=== PATIENT | female | born 1945 | race Caucasian/White ===

== ENCOUNTER 2019-05-27 21:41 | Observation (INO) ==
[2019-05-27] MEDS ORDERED: Isovue-370 500 ML BOTTLE IVP ONE (21:56)
[2019-05-27 22:31] LABS: Hematocrit 41.8 % (35.3-44.9); Hemoglobin 13.7 g/dL (11.5-15.4); Mean Corpuscular HGB Conc 32.8 g/dL (31.6-35.5); Mean Corpuscular Hemoglobin 29.3 pg (28.0-33.3); Mean Corpuscular Volume 89.3 fL (83.0-100.0); Mean Platelet Volume 9.9 fL (9.4-12.4); Platelet Count 292 K/mcL (140-400); Red Blood Count 4.68 M/mcL (3.82-4.97); Red Cell Distribution Width 12.7 % (11.5-14.5); White Blood Count 7.8 K/mcL (4.3-11.1)
[2019-05-27 22:38] LABS: Prothrombin Time 10.9 Seconds (9.4-12.1)
[2019-05-27 22:41] LABS: Activated Partial Thrombo Time 28.8 Seconds (26.0-36.0)
[2019-05-27 22:49] LABS: BUN/Creatinine Ratio 16 (6-26); Blood Urea Nitrogen 14 mg/dL (8-23); Calcium 8.4 mg/dL (8.6-10.3); Carbon Dioxide 24 mEq/L (23-29); Chloride 103 mEq/L (98-107); Glucose 175 mg/dL (70-105); Osmolality,Calculated 279 (280-300); Potassium 3.6 mEq/L (3.5-5.1); Sodium 132 mEq/L (136-145); eGFR For African Americans > 60 (> 60); eGFR For Non-African Americans > 60 (> 60)
[2019-05-27 22:50] LABS: Troponin I < 0.03 ng/mL (< 0.04)
[2019-05-27] MEDS ORDERED: Aspirin 325 MG TABLET PO ONE (23:09)
[2019-05-28 00:41] LABS: Bilirubin,Urine Negative (Negative); Blood,Urine Negative (Negative); Clarity,Urine Clear (Clear); Color,Urine Yellow (Yellow); Glucose,Urine (UA) Normal (Normal); Ketones,Urine Negative (Negative); Leukocyte Esterase,Urine Small (Negative); Nitrite,Urine Negative (Negative); PH,Urine 6.5 pH Units (5.0-8.0); Protein,Urine 30 mg/dL (Neg-Trace); Specific Gravity,Urine > 1.030 (1.010-1.025); Urobilinogen,Urine Normal (Normal)
[2019-05-28 00:44] LABS: Bacteria,Urine None Seen per hpf (None-Few); Hyaline Casts,Urine None Seen per lpf (None-Few); Squamous Epithelial Cell,Urine Many per lpf (None-Few)
[2019-05-28 01:06] LABS: WBC,Urine 0-3 per hpf (0-3)
[2019-05-28] MEDS ORDERED: Ondansetron 4 MG/2 ML VIAL IVP PRN (01:35)
[2019-05-28] MEDS ORDERED: Naloxone 0.4 MG/ML INJ IVP PRN (01:35)
[2019-05-28] MEDS ORDERED: Acetaminophen 325 MG TABLET PO PRN (01:35)
[2019-05-28] MEDS: *HR* Heparin 5,000 UNIT/ML VIAL SQ SCH ×4 (02:07→23:11)
[2019-05-28 04:56] LABS: Basophils % 0.5 %; Eosinophils # 0.2 K/mcL (0.0-0.6); Eosinophils % 2.5 %; Hematocrit 40.8 % (35.3-44.9); Hemoglobin 13.1 g/dL (11.5-15.4); Immature Granulocytes % 0.2 % (0-4); Lymphocytes # 2.6 K/mcL (0.6-4.6); Lymphocytes % 32.6 %; Mean Corpuscular HGB Conc 32.1 g/dL (31.6-35.5); Mean Corpuscular Hemoglobin 28.5 pg (28.0-33.3); Mean Corpuscular Volume 88.7 fL (83.0-100.0); Mean Platelet Volume 9.8 fL (9.4-12.4); Monocytes # 0.6 K/mcL (0.0-1.3); Monocytes % 7.5 %; Neutrophils # 4.6 K/mcL (1.6-8.9); Platelet Count 289 K/mcL (140-400); Red Cell Distribution Width 12.6 % (11.5-14.5); Segmented Neutrophils % 56.7 %
[2019-05-28 05:03] LABS: Alanine Aminotransferase 11 Units/L (7-52); Albumin 3.3 g/dL (3.5-5.7); Albumin/Globulin Ratio 1.3 (1.1-2.2); Alkaline Phosphatase 89 Units/L (34-104); Aspartate Amino Transferase 12 Units/L (13-39); BUN/Creatinine Ratio 16 (6-26); Bilirubin,Total 0.5 mg/dL (0.3-1.0); Blood Urea Nitrogen 12 mg/dL (8-23); Calcium 8.7 mg/dL (8.6-10.3); Carbon Dioxide 25 mEq/L (23-29); Chloride 105 mEq/L (98-107); Chol/HDL Ratio 4.3 (0-4.9); Cholesterol 211 mg/dL (< 200); Globulin 2.5 g/dL (2.4-3.5); Glucose 93 mg/dL (70-105); HDL Cholesterol 49 mg/dL (40-59); LDL Cholesterol,Calculated 134 mg/dL (0-99); Magnesium 1.7 mg/dL (1.6-2.6); Osmolality,Calculated 283 (280-300); Phosphorous 2.7 mg/dL (2.7-4.5); Potassium 3.3 mEq/L (3.5-5.1); Sodium 137 mEq/L (136-145); Total Protein 5.8 g/dL (6.4-8.9); Triglycerides 139 mg/dL (< 150); eGFR For African Americans > 60 (> 60); eGFR For Non-African Americans > 60 (> 60)
[2019-05-28 05:04] LABS: Prothrombin Time 10.8 Seconds (9.4-12.1)
[2019-05-28] MEDS: *HR* Metoprolol 5 MG/5 ML VIAL IVP SCH ×3 (05:24→18:03)
[2019-05-28] MEDS ORDERED: [UNRECOGNIZED DRUG - OTHER] SQ SCH (09:00)
[2019-05-28] MEDS ORDERED: INSULIN GLARGINE HUM REC ANLOG U SQ SCH (09:00)
[2019-05-28] MEDS: Furosemide 40 MG TABLET PO SCH (10:17)
[2019-05-28] MEDS ORDERED: Gadolinium Contrast Agent (WT Based) IV PRN (10:17)
[2019-05-28] MEDS: Insulin DETEMIR 100 UNIT/ML X5UNITS SQ SCH (10:18)
[2019-05-28] MEDS: Aspirin 81 MG TAB.CHEW PO SCH (16:00)
[2019-05-28] MEDS ORDERED: Dextrose Gel 15 GM/37.5 ML TUBE PO PRN ×2 (20:30)
[2019-05-28] MEDS ORDERED: *HR* Dextrose 50 % in Water (Syg) 50 ML SYRINGE IVP PRN (20:30)
[2019-05-28] MEDS ORDERED: D5% in Water 1,000 ML IVC PRN (20:30)
[2019-05-28] MEDS ORDERED: Insulin LISPRO 300 UNITS/3 ML VIAL SQ SCH (21:00)
[2019-05-28] MEDS ORDERED: Melatonin 3 MG TABLET PO ONE (22:35)
[2019-05-29] MEDS: *HR* Metoprolol 5 MG/5 ML VIAL IVP SCH ×4 (00:30→18:09)
[2019-05-29] MEDS: *HR* Heparin 5,000 UNIT/ML VIAL SQ SCH ×2 (05:32→11:43)
[2019-05-29 06:01] LABS: BUN/Creatinine Ratio 16 (6-26); Blood Urea Nitrogen 12 mg/dL (8-23); Calcium 8.7 mg/dL (8.6-10.3); Carbon Dioxide 25 mEq/L (23-29); Chloride 105 mEq/L (98-107); Glucose 99 mg/dL (70-105); Magnesium 1.7 mg/dL (1.6-2.6); Osmolality,Calculated 282 (280-300); Phosphorous 4.4 mg/dL (2.7-4.5); Sodium 136 mEq/L (136-145); eGFR For African Americans > 60 (> 60); eGFR For Non-African Americans > 60 (> 60)
[2019-05-29] MEDS: Aspirin 81 MG TAB.CHEW PO SCH (07:35)
[2019-05-29] MEDS: Furosemide 40 MG TABLET PO SCH (07:35)
[2019-05-29] MEDS: Insulin LISPRO 300 UNITS/3 ML VIAL SQ SCH ×3 (08:43→18:09)
[2019-05-29] MEDS: Insulin DETEMIR 100 UNIT/ML X5UNITS SQ SCH (09:24)
[2019-05-29] MEDS ORDERED: Gadolinium Contrast Agent (WT Based) IV PRN (11:00)
[2019-05-29] MEDS ORDERED: *HR* LORazepam 0.5 MG TABLET PO ONE (11:02)
[2019-05-29] MEDS ORDERED: Isovue-370 500 ML BOTTLE IVP ONE ×3 (14:42→15:15)
[2019-05-29 16:29] VITALS: BP 139/79
== END 2019-05-29 18:23 | disposition home or self-care (01) ==
LOC: 3BNU 21:41 → EMEROOARM 21:41 → SUATTDRO 23:20 → 3BNU 05-28 00:05
PROVIDERS: ADMIT Internal Medicine; ATTEND Internal Medicine

== ENCOUNTER 2019-07-25 07:48 | Inpatient (IN) ==
[2019-07-25] MEDS ORDERED: Clindamycin 900 MG/50 ML 900 MG/50 ML IV.SOLN IVPB ONE (08:32)
[2019-07-25] MEDS ORDERED: Ringers Solution, Lactated 1,000 ML IVC SCH ×2 (08:45→15:17)
[2019-07-25] MEDS ORDERED: *HR* FentaNYL (PF) 100 MCG/2 ML VIAL ONE ×3 (10:19→13:30)
[2019-07-25] MEDS ORDERED: Ondansetron 4 MG/2 ML VIAL ONE (10:19)
[2019-07-25] MEDS ORDERED: Dexamethasone 4 MG/ML VIAL ONE (10:19)
[2019-07-25] MEDS ORDERED: *HR* Succinylcholine 200 MG/10 ML VIAL IVP ONE (10:19)
[2019-07-25] MEDS ORDERED: Lidocaine -MPF 2% 2 ML VIAL ONE (10:19)
[2019-07-25] MEDS ORDERED: *HR* Propofol 200 MG/20 ML VIAL IVP ONE (10:19)
[2019-07-25] MEDS ORDERED: Lidocaine HCL 4 ML Topical Solution (Laryng-O-Jet Kit Sterile Pak) TP ONE (10:19)
[2019-07-25] MEDS ORDERED: carvediloL 6.25 MG TABLET PO ONE (11:02)
[2019-07-25] MEDS ORDERED: Ondansetron 4 MG/2 ML VIAL IVP ONE (11:03)
[2019-07-25] MEDS ORDERED: *HR* OxyCODONE Immed Rel 5 MG TABLET PO PRN (11:03)
[2019-07-25] MEDS ORDERED: *HR* Midazolam HCl 2 MG/2 ML VIAL ONE (11:47)
[2019-07-25] MEDS ORDERED: Acetaminophen IV 1,000 MG/100 ML INFUS..BTL ONE (12:35)
[2019-07-25] MEDS ORDERED: EPHEDrine 50 MG/ML VIAL ONE (12:54)
[2019-07-25] MEDS: Morphine Sulfate 2 MG/ML SYRINGE IVP PRN ×3 (14:07→14:38)
[2019-07-25] MEDS ORDERED: Dextrose Gel 15 GM/37.5 ML TUBE PO PRN (15:17)
[2019-07-25] MEDS ORDERED: *HR* Dextrose 50 % in Water (Syg) 50 ML SYRINGE IVP PRN (15:17)
[2019-07-25] MEDS ORDERED: D5% in Water 1,000 ML IVC PRN (15:17)
[2019-07-25] MEDS ORDERED: Acetaminophen 325 MG TABLET PO PRN (15:17)
[2019-07-25] MEDS: *HR* OxyCODONE Immed Rel 5 MG TABLET PO PRN (15:41)
[2019-07-25] MEDS: Insulin LISPRO 300 UNITS/3 ML VIAL SQ SCH ×2 (17:17→20:55)
[2019-07-26] MEDS: Insulin LISPRO 300 UNITS/3 ML VIAL SQ SCH ×5 (00:21→17:12)
[2019-07-26 05:53] LABS: Basophils % 0.3 %; Eosinophils % 0.1 %; Hematocrit 37.6 % (35.3-44.9); Hemoglobin 12.5 g/dL (11.5-15.4); Immature Granulocytes % 0.4 % (0-4); Lymphocytes # 1.6 K/mcL (0.6-4.6); Lymphocytes % 16.4 %; Mean Corpuscular HGB Conc 33.2 g/dL (31.6-35.5); Mean Corpuscular Hemoglobin 28.8 pg (28.0-33.3); Mean Corpuscular Volume 86.6 fL (83.0-100.0); Monocytes # 0.9 K/mcL (0.0-1.3); Monocytes % 8.8 %; Neutrophils # 7.1 K/mcL (1.6-8.9); Platelet Count 257 K/mcL (140-400); Red Blood Count 4.34 M/mcL (3.82-4.97); White Blood Count 9.7 K/mcL (4.3-11.1)
[2019-07-26 06:11] LABS: BUN/Creatinine Ratio 20 (6-26); Blood Urea Nitrogen 17 mg/dL (8-23); Calcium 8.7 mg/dL (8.6-10.3); Carbon Dioxide 25 mEq/L (23-29); Chloride 102 mEq/L (98-107); Glucose 180 mg/dL (70-105); Osmolality,Calculated 284 (280-300); Potassium 4.3 mEq/L (3.5-5.1); Sodium 134 mEq/L (136-145); eGFR For African Americans > 60 (> 60); eGFR For Non-African Americans > 60 (> 60)
[2019-07-26] MEDS: Insulin DETEMIR 100 UNIT/ML X5UNITS SQ SCH (07:22)
[2019-07-26] MEDS: Furosemide 40 MG TABLET PO SCH (07:22)
[2019-07-26] MEDS: *HR* OxyCODONE Immed Rel 5 MG TABLET PO PRN ×2 (07:28→19:24)
[2019-07-26] MEDS: carvediloL 6.25 MG TABLET PO SCH ×2 (07:30→17:15)
[2019-07-26] MEDS ORDERED: carvediloL 25 MG TABLET PO SCH (08:00)
[2019-07-26] MEDS ORDERED: Insulin DETEMIR 100 UNIT/ML X5UNITS SQ SCH (21:00)
[2019-07-26] MEDS ORDERED: Insulin LISPRO 300 UNITS/3 ML VIAL SQ SCH (21:00)
[2019-07-27 04:54] VITALS: BP 126/72
[2019-07-27] MEDS: Insulin LISPRO 300 UNITS/3 ML VIAL SQ SCH ×2 (08:20→13:13)
[2019-07-27] MEDS: Furosemide 40 MG TABLET PO SCH (08:22)
[2019-07-27] MEDS: carvediloL 6.25 MG TABLET PO SCH (08:22)
[2019-07-27] MEDS: *HR* OxyCODONE Immed Rel 5 MG TABLET PO PRN (08:34)
[2019-07-27] MEDS: Insulin DETEMIR 100 UNIT/ML X5UNITS SQ SCH (09:33)
== END 2019-07-27 14:12 | disposition home or self-care (01) | DRG 580 ==
LOC: SAMDAY 07:48 → 3ANU 15:02
PROVIDERS: ADMIT Surgery; ATTEND Surgery
PROC: GENSENT (ICD-10-PCS; 2019-07-25 10:40)